=== PATIENT | male | born 1960 | race Two or more races ===

== ENCOUNTER 2017-01-12 18:15 | Emergency (ER) | payer MEDICAID ==
[~2017-01-12] VITALS: Ht 175.3 cm; Wt 95.3 kg
[2017-01-12 18:39] VITALS: BP 110/67
[2017-01-12 19:02] LABS: Basophils # (auto) 0.1 uL; Basophils % (auto) 0.7 % (0.0-2.0); Eosinophils # (auto) 0.2 uL; Eosinophils % (auto) 2.4 % (0.0-7.0); Hematocrit 42.6 % (41.0-53.0); Lymphocytes # (auto) 2.6 uL; Lymphocytes % (auto) 29.7 % (10.0-50.0); Mean Corpuscular Hemoglobin 28.8 pg (28.0-32.0); Mean Corpuscular Hgb Conc. 32.8 g/dL (32.0-36.0); Mean Corpuscular Volume 87.9 fL (80.0-100.0); Mean Platelet Volume 8.9 fL (7.4-10.4); Monocytes # (auto) 0.5 uL; Monocytes % (auto) 5.4 % (0.0-12.0); Neutrophils # (auto) 5.3 uL; Neutrophils % (auto) 61.8 % (37.0-80.0); Platelet Count (auto) 229 10^3/uL (140-450); Red Cell Distribution Width 13.3 % (11.6-16.0); White Blood Cell 8.6 10^3/uL (4.4-10.8)
[2017-01-12 19:32] LABS: Albumin 3.4 g/dL (3.4-5.0); Anion Gap 7 (5-15); Aspartate Aminotransferase 12 U/L (15-37); BUN/Creatinine Ratio 9.9; Blood Urea Nitrogen 12 mg/dL (7-18); Calcium 8.1 mg/dL (8.5-10.1); Carbon Dioxide 30 mmol/L (21-32); Chloride 105 mmol/L (98-107); GFR African American 80 mL/min; GFR Non-African American 66 mL/min; Glucose 130 mg/dL (74-106); Magnesium 2.6 mg/dL (1.6-2.6); Sodium 142 mmol/L (136-145)
[2017-01-12 19:37] LABS: Alkaline Phosphatase 58 U/L (45-117); Bilirubin, Total 0.3 mg/dL (0.2-1.0)
== END 2017-01-12 21:10 | disposition left against medical advice (07) ==
LOC: ER 18:16
DX: R53.1 Weakness (principal); Z53.21 Procedure and treatment not carried out due to patient leaving prior to being seen by health care provider
CPT/HCPCS: 36415; 80053; 83735; 84484; 85025; 93005